=== PATIENT | male | born 1935 | race Caucasian/White ===

== ENCOUNTER → 2016-10-05 | Outpatient (CLI) | payer MEDICARE, OTHER ==
[2016-10-05 12:30] LABS: ABSOLUTE BASOPHILS # (AUTO) 0.1 10^3/uL (0.0-0.2); ABSOLUTE EOSINOPHILS # (AUTO) 0.4 10^3/uL (0.0-0.6); ABSOLUTE LYMPHOCYTES (AUTO) 1.9 10^3/uL (0.5-4.7); ABSOLUTE NEUT (AUTO) 9.1 10^3/uL (1.7-8.2); BASOPHILS % (AUTO) 1.1 % (0-2); EOSINOPHILS % (AUTO) 3.3 % (0-6); HEMATOCRIT 34.9 % (37.9-51.0); HGB HCT DIFFERENCE 1.1; LYMPHOCYTES % (AUTO) 14.9 % (13-45); MEAN CORPUSCULAR HEMOGLOBIN 31.9 pg (27.0-33.4); MEAN CORPUSCULAR HGB CONC 34.4 g/dL (32.0-36.0); MEAN CORPUSCULAR VOLUME 93 fl (80-97); RED BLOOD COUNT 3.76 10^6/uL (4.35-5.55); RED CELL DISTRIBUTION WIDTH 13.1 % (11.5-14.0); SEGMENTED NEUTROPHILS % (AUTO) 72.7 % (42-78); WHITE BLOOD COUNT 12.6 10^3/uL (4.0-10.5)
[2016-10-05 13:06] LABS: ERYTHROCYTE SEDIMENTATION RATE 98 mm/hr (0-20)
[2016-10-05 13:08] LABS: ALANINE AMINOTRANSFERASE 39 U/L (21-72); ALBUMIN 3.5 g/dL (3.5-5.0); ALKALINE PHOSPHATASE 100 U/L (38-126); ANION GAP 12 (5-19); ASPARTATE AMINO TRANSFERASE 26 U/L (17-59); BILIRUBIN,TOTAL 0.3 mg/dL (0.2-1.3); BLOOD UREA NITROGEN 16 mg/dL (7-20); C-REACTIVE PROTEIN 24.7 mg/L (<10.0); CALCIUM 9.4 mg/dL (8.4-10.2); CARBON DIOXIDE 30 mmol/L (22-30); CHLORIDE 98 mmol/L (98-107); CREATININE RESULT 0.87 mg/dL (0.52-1.25); GLUCOSE 221 mg/dL (75-110); POTASSIUM 4.9 mmol/L (3.6-5.0); TOTAL PROTEIN 7.1 g/dL (6.3-8.2)
== END ==
LOC: WC 11:18
PROVIDERS: ATTEND Nurse Practitioner Family
DX: L97.512 Non-pressure chronic ulcer of other part of right foot with fat layer exposed (principal)
CPT/HCPCS: 36415; 80053; 83036; 85025; 85652; 86140

== ENCOUNTER → 2016-10-05 | Outpatient (CLI) | payer MEDICARE, OTHER | LOC: OD 11:43 | PROVIDERS: ATTEND Nurse Practitioner Family | DX: L97.511 Non-pressure chronic ulcer of other part of right foot limited to breakdown of skin (principal) | CPT/HCPCS: 71020 ==

== ENCOUNTER → 2016-10-07 | Outpatient (CLI) | payer MEDICARE, OTHER ==
--- NOTE | 2016-10-07 12:16 | XCELERA REPORT ---
[address] [address] Lower Extremity Arterial Evaluation Name: BOBBI PEREZ Age: 81 yrs Gender: Male : 1935 Patient Status: Outpatient Patient Location: Study Date: 10/07/2016 08:09 AM Procedure: A color flow and duplex scan of the lower extremity arteries was performed bilaterally with velocity and waveform anaylsis. PPG's performed. Reason For Study: ULCER Ordering Physician: KASEY RANDALL Performed By: Yong Michael Measurements and Calculations Right Left MUSIC ARRANGER PSV 85.5 87.9 cm/sec Prox PFA PSV -565.7 -406.0 cm/sec Prox SFA PSV 108.3 58.1 cm/sec Mid SFA PSV -105.3 -95.7 cm/sec Dist SFA PSV -51.1 cm/sec Prox Pop A PSV 52.4 cm/sec Dist Pop A PSV 66.3 cm/sec Prox FAUSTINO PSV 25.5 cm/sec Dist FAUSTINO PSV 13.9 cm/sec Prox DOCUMENT CONTROL SPECIALIST PSV 88.7 cm/sec Dist DOCUMENT CONTROL SPECIALIST PSV 36.0 cm/sec Dist Lyndsay A PSV 22.0 -38.0 cm/sec Sukhjinder Pedis PSV 50.2 -8.4 cm/sec Right Side Arterial Evaluation Normal velocity, waveform and triphasic flow are present, in the Common Femoral artery. Biphasic in the Deep Femoral artery. Occluded in mid Femora. artery. Monophasic reconstitution in the Popliteal artery to the infrageniculate vessels. The ankle-brachial index is 0.44. Occlusion is noted at the Femoral artery. Left Side Arterial Evaluation Slightly low normal velocity, waveform biphasic present, in the Common Femoral artery. . Occluded in mid Femoral. artery. Monophasic reconstitution in the Popliteal artery. 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 The ankle-brachial index was not obtainable. 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 : KASEY RANDALL > Jaleel Torrez
== END ==
LOC: SP 07:53
PROVIDERS: ATTEND Nurse Practitioner Family
DX: L97.512 Non-pressure chronic ulcer of other part of right foot with fat layer exposed (principal)
CPT/HCPCS: 93925